=== PATIENT | male | born 1960 | race Caucasian/White ===

== ENCOUNTER 2016-05-20 12:18 | Outpatient (CLI) | payer MEDICAID, OTHER ==
[2014-04-27 13:22] VITALS: BP 177/118
== END 2016-05-20 12:20 ==
LOC: CARD 12:18
PROVIDERS: ATTEND Internal Medicine Cardiovascular Disease
DX: I50.9 Heart failure, unspecified (principal); R06.00 Dyspnea, unspecified; R60.9 Edema, unspecified; I10 Essential (primary) hypertension; E78.5 Hyperlipidemia, unspecified; Z86.718 Personal history of other venous thrombosis and embolism; Z86.711 Personal history of pulmonary embolism
CPT/HCPCS: 99213

== ENCOUNTER 2016-06-23 09:42 | Outpatient (CLI) | payer MEDICAID ==
[2014-04-27 13:22] VITALS: BP 177/118
== END 2016-06-23 09:45 ==
LOC: LAB 09:42
PROVIDERS: ATTEND Nurse Practitioner Family
DX: Z51.81 Encounter for therapeutic drug level monitoring (principal); Z79.01 Long term (current) use of anticoagulants; I82.509 Chronic embolism and thrombosis of unspecified deep veins of unspecified lower extremity
CPT/HCPCS: 36415; 85610

== ENCOUNTER 2016-07-28 11:31 | Outpatient (CLI) | payer MEDICAID ==
[2014-04-27 13:22] VITALS: BP 177/118
== END 2016-07-28 11:32 ==
LOC: LAB 11:31
PROVIDERS: ATTEND Nurse Practitioner Family
DX: Z51.81 Encounter for therapeutic drug level monitoring (principal); Z79.01 Long term (current) use of anticoagulants; I82.509 Chronic embolism and thrombosis of unspecified deep veins of unspecified lower extremity
CPT/HCPCS: 36415; 85610

== ENCOUNTER 2016-08-18 12:21 | Outpatient (CLI) | payer MEDICAID ==
[2014-04-27 13:22] VITALS: BP 177/118
== END 2016-08-18 12:22 ==
LOC: LAB 12:21
PROVIDERS: ATTEND Nurse Practitioner Family
DX: Z79.01 Long term (current) use of anticoagulants (principal)
CPT/HCPCS: 36415; 85610